=== PATIENT | male | born 1970 | race Caucasian/White ===

== ENCOUNTER 2024-10-14 09:13 | Emergency (ER) | payer BC ==
[2024-10-14 09:20] VITALS: BP 108/79; TEMP 97.5; BMI 25.1
[2024-10-14] MEDS ORDERED: morphine SULFATE 4 MG/ML VIAL ONE (09:48)
[2024-10-14] MEDS: morphine CARPU-JECT 4 MG/1 ML DISP.SYRIN IVPUSH ONE (09:51)
[2024-10-14 10:00] LABS: HEMATOCRIT 41.1 % (40.1-51.0); MCHC 34.1 g/dl (32.3-36.5); MEAN CELL VOLUME 80.3 fl (79.0-92.2); MEAN PLT VOLUME 9.7 fl (9.4-12.4); PLATELET COUNT 292 x10^3/uL (163-337); RDW 14.1 % (12.2-16.1)
[2024-10-14 10:18] LABS: ALBUMIN 4.4 g/dl (3.4-5.0); BILIRUBIN,TOTAL 1.5 mg/dl (0.2-1); CALCIUM 9.8 mg/dl (8.5-10.1); POTASSIUM 4.2 mmol/L (3.5-5.1); TOT PROT 6.2 g/dl (6.4-8.2)
[2024-10-14 10:21] VITALS: PULSE 102; RESP 16
[2024-10-14 10:22] LABS: INR 1.07 (0.83-1.09); PROTHROMBIN TIME (PATIENT) 11.9 SEC (9.7-13.0)
[2024-10-14 10:24] LABS: ACTIVATED PTT 24.5 SECONDS (25.2-36.5)
[2024-10-14 13:16] LABS: HCV DIAGNOSTIC IN-HOUSE W/RFLX NON-REACTIVE (NONREACTIVE); HIV INTERPRETATION NEGATIVE (NEGATIVE)
== END 2024-10-14 11:00 | disposition home or self-care (01) ==
LOC: FER 09:13
PROC: 3E033NZ Introduction of Analgesics, Hypnotics, Sedatives into Peripheral Vein, Percutaneous Approach (ICD-10-PCS; principal; 2024-10-14)
DX: M25.562 Pain in left knee (principal); M25.462 Effusion, left knee; M79.652 Pain in left thigh
CPT/HCPCS: 36415; 80053; 82550; 83605; 85025; 85610; 85730; 86803; 86850; 86900; 86901; 87389; 99284-25

== ENCOUNTER 2024-10-29 07:51 | Day surgery (SDC) | payer BC ==
[2024-10-28 10:56] VITALS: BMI 25.1
[2024-10-29] MEDS ORDERED: ROPIVACAINE 0.2% 400ML 400 ML ML NR ONE (08:00)
[2024-10-29] MEDS ORDERED: ROPIVACAINE HCL/PF 100 MG/20 ML VIAL ONE (11:42)
[2024-10-29] MEDS ORDERED: ACETAMINOPHEN INJECTION 100 ML ONE (11:42)
[2024-10-29] MEDS ORDERED: PROPOFOL 40 ML ONE (12:03)
[2024-10-29] MEDS ORDERED: MIDAZOLAM HCL 2 MG/2 ML SINGLE DOSE VIAL ONE (12:04)
[2024-10-29] MEDS ORDERED: LIDOCAINE HCL/PF 2% SDV 5ML VIAL ONE (12:28)
[2024-10-29] MEDS ORDERED: EPINEPHrine 1:1000 P/F - 1 MG/ML AMP ONE (12:28)
[2024-10-29] MEDS ORDERED: ONDANSETRON 4 MG/2 ML VIAL IVPUSH PRN (13:24)
[2024-10-29] MEDS ORDERED: LACTATED RINGERS SOLUTION 1,000 ML IV SCH (13:30)
[2024-10-29 13:50] VITALS: RESP 18; TEMP 97.5
[2024-10-29] MEDS ORDERED: oxyCODONE HCL 5 MG TABLET ONE (13:58)
[2024-10-29] MEDS: oxyCODONE HCL 5 MG TABLET PO PRN (14:00)
[2024-10-29 14:37] VITALS: BP 131/84; PULSE 89
== END 2024-10-29 14:40 | disposition home or self-care (01) ==
LOC: FASU 07:51
PROVIDERS: ATTEND Orthopaedic Surgery
PROC: 0SSDXZZ Reposition Left Knee Joint, External Approach (ICD-10-PCS; principal; 2024-10-29 12:16)
DX: M24.662 Ankylosis, left knee (principal)
CPT/HCPCS: 94760